=== PATIENT | male | born 1970 | race Caucasian/White ===

== ENCOUNTER 2018-05-03 10:14 | Inpatient (IN) | payer OTHER ==
[2018-05-03] MEDS ORDERED: Pantoprazole IV* 40 MG IV ONE (10:31)
[2018-05-03] MEDS ORDERED: Sucralfate TAB* 1 GM PO ONE (10:31)
[2018-05-03] MEDS ORDERED: Albuterol/Ipratropium NEB.SOL* Albuterol 2.5 MG/Ipratropium 0.5 MG 3 ML INH ONE (10:31)
[2018-05-03] MEDS ORDERED: Al Hydrox/Mg Hydrox/Simet LIQ* 30 ML UDC PO ONE (10:31)
[2018-05-03] MEDS ORDERED: Famotidine TAB* 20 MG PO ONE (10:31)
[2018-05-03 11:27] LABS: ABS Basophils 0 10^3/ul (0-0.2); ABS Eosinophils 0 10^3/ul (0-0.6); ABS Lymphocytes 0.9 10^3/ul (1.0-4.8); ABS Monocytes 1.3 10^3/ul (0-0.8); ABS Neutrophils 11.5 10^3/ul (1.5-7.7); ABS Nucleated RBC 0 10^3/ul; Eosinophil % 0.1 % (0-6); Hematocrit 44 % (42-52); Hemoglobin 14.6 g/dl (14.0-18.0); Lymphocyte % 6.7 % (25-47); Mean Corpuscular HGB Conc 33 g/dl (31-36); Mean Corpuscular Hemoglobin 31 pg (27-31); Mean Corpuscular Volume 91 fL (80-94); Mean Platelet Volume 7.6 um3 (7.4-10.4); Nucleated Red Blood Cells % 0.1; Platelet Count 174 10^3/ul (150-450); Red Blood Count 4.79 10^6/ul (4.00-5.40); Red Cell Distribution Width 14 % (10.5-15); White Blood Count 13.9 10^3/ul (3.5-10.8)
--- NOTE | 2018-05-03 11:53 | RAD ---
INDICATION: LEFT upper quadrant abdominal and lower LEFT chest pain. History of esophageal tumor. COMPARISON: No relevant prior exams available on the [facility] PACS for comparison. TECHNIQUE: Dual energy PA and routine lateral views of the chest were obtained. REPORT: Elevated lung volumes and both diffuse mild prominence of the interstitial markings and patchy rarefaction of the mid to upper lung zone interstitial markings. Alveolar consolidation at the lingula without volume loss to favor atelectasis. Negative for pleural effusion or pneumothorax. The heart, pulmonary vasculature, and mediastinal contours are unremarkable. Negative for free air beneath the diaphragm. Bilateral nonacute rib fractures with callus formation. No acute rib fracture or suspicious focal osseous lesion evident. IMPRESSION: 1. Alveolar consolidation at the lingula most consistent with pneumonia. Radiographic follow-up after therapy warranted to assess for resolution. 2. Stigmata of obstructive lung disease.
[2018-05-03] MEDS ORDERED: Levofloxacin 750 MG IVPREMIX(* 750 MG/150 ML BAG IVPB ONE (11:55)
[2018-05-03] MEDS ORDERED: NS 0.9% 1000 ML* 1,000 ML IV ONE (11:55)
[2018-05-03] MEDS ORDERED: methylPREDNISolone 125 MG* 2 ML VIAL IV ONE (11:56)
[2018-05-03] MEDS ORDERED: NS 0.9% 1000 ML*IV.FLUID IV ONE (12:04)
[2018-05-03] MEDS ORDERED: Acetaminophen TAB* 325 MG PO PRN (13:04)
[2018-05-03] MEDS ORDERED: Ondansetron INJ* 2 MG/ML VIAL IV PRN (13:04)
[2018-05-03] MEDS ORDERED: Al Hydrox/Mg Hydrox/Simet LIQ* 30 ML UDC PO PRN (13:04)
[2018-05-03] MEDS ORDERED: Thiamine IV* 100 MG/ML 2 ML VIAL IM ONE (13:04)
--- NOTE | 2018-05-03 13:16 | ED ---
Teodoro Kumari Stephanie, scribed for Gabriel Love MD on 05/03/18 at 1039 . Abdominal Pain/Male - HPI Summary HPI Summary: The pt is a 47 y/o M BIBA to the ED with c/o LUQ abd pain that began at 08:00. Symptoms include SOB, cough, and blood in stool. The pt is supposed to be on 2 L of O2 at home. The pt is taking mucinex. - History of Current Complaint Stated Complaint: CHEST PAIN Time Seen by Provider: 05/03/18 10:21 Hx Obtained From: Patient Onset/Duration: Sudden Onset, Lasting Hours, Still Present Timing: Constant Severity Currently: Mild Location: Discrete At: LUQ Radiates: No Aggravating Factor(s): Nothing Alleviating Factor(s): Nothing Associated Signs And Symptoms: Positive: Blood in Stool. Negative: Nausea, Vomiting - Allergies/Home Medications Allergies/Adverse Reactions: Allergies Allergy/AdvReac Type Severity Reaction Status Date / Time pollen extracts Allergy Eyes Verified 05/03/18 10:31 Itchy/Swollen/Red/Watery PMH/Surg Hx/FS Hx/Imm Hx Respiratory History: Reports: Hx Chronic Obstructive Pulmonary Disease (COPD) Sensory History: Denies: Hx Legally Blind EENT History: Denies: Hx Deafness Psychiatric History: Reports: Hx Anxiety - Family History Known Family History: Negative: Renal Disease - Social History Occupation: Employed Part-time, Disabled Lives: Alone Alcohol Use: Daily Hx Substance Use: No Substance Use Type: Reports: None Hx Tobacco Use: Yes Smoking Status (MU): Current Every Day Smoker Have You Smoked in the Last Year: Yes Review of Systems Negative: Fever Positive: Shortness Of Breath, Cough Positive: Abdominal Pain, Other - blood in stool. Negative: Vomiting, Nausea Negative: Slurred Speech All Other Systems Reviewed And Are Negative: Yes Physical Exam - Summary Physical Exam Summary: Appearance: Well appearing, no pain distress, smells heavily of alcohol Skin: warm, dry, reflects adequate perfusion Head/face: normal Eyes: EOMI, LESA ENT: normal Neck: supple, non-tender Respiratory: breath sounds present, wheezes in both basis, decreased aeration globally Cardiovascular: RRR, pulses symmetrical Abdomen: non-tender, soft, LUQ discomfort, L lower rib pain, no rebound or guarding Bowel Sounds: present Musculoskeletal: normal, strength/ROM intact Neuro: normal, sensory motor intact, A&Ox3 Triage Information Reviewed: Yes Vital Signs On Initial Exam: Initial Vitals Temp Pulse Resp BP Pulse Ox 100.2 F 119 28 141/97 94 05/03/18 10:23 05/03/18 10:23 05/03/18 10:23 05/03/18 10:23 05/03/18 10:23 Vital Signs Reviewed: Yes Diagnostics - Vital Signs Vital Signs Temp Pulse Resp BP Pulse Ox 05/03/18 11:52 123 23 96/68 92 05/03/18 11:21 115 18 97 05/03/18 11:17 113 18 99 05/03/18 10:23 100.2 F 119 28 141/97 94 - Laboratory Lab Results: Lab Results 05/03/18 05/03/18 05/03/18 Range/Units 10:40 10:40 12:14 WBC 13.9 H (3.5-10.8) 10^3/ul RBC 4.79 (4.00-5.40) 10^6/ul Hgb 14.6 (14.0-18.0) g/dl Hct 44 (42-52) % MCV 91 (80-94) fL MCH 31 (27-31) pg MCHC 33 (31-36) g/dl RDW 14 (10.5-15) % Plt Count 174 (150-450) 10^3/ul MPV 7.6 (7.4-10.4) um3 Neut % (Auto) 83.2 H (38-83) % Lymph % (Auto) 6.7 L (25-47) % [place] % (Auto) 9.7 H (0-7) % Eos % (Auto) 0.1 (0-6) % Baso % (Auto) 0.3 (0-2) % Absolute Neuts (auto) 11.5 H (1.5-7.7) 10^3/ul Absolute Lymphs (auto) 0.9 L (1.0-4.8) 10^3/ul Absolute Monos (auto) 1.3 H (0-0.8) 10^3/ul Absolute Eos (auto) 0 (0-0.6) 10^3/ul Absolute Basos (auto) 0 (0-0.2) 10^3/ul Absolute Nucleated RBC 0 10^3/ul Nucleated RBC % 0.1 Sodium 129 L (135-145) mmol/L Potassium 3.7 (3.5-5.0) mmol/L Chloride 91 L (101-111) mmol/L Carbon Dioxide 27 (22-32) mmol/L Anion Gap 11 (2-11) mmol/L BUN 4 L (6-24) mg/dL Creatinine 0.51 L (0.67-1.17) mg/dL Est GFR ( Amer) 225.0 (>60) Est GFR (Non-Af Amer) 175.0 (>60) BUN/Creatinine Ratio 7.8 L (8-20) Glucose 91 (70-100) mg/dL Lactic Acid 2.7 H* (0.5-2.0) mmol/L Calcium 8.5 L (8.6-10.3) mg/dL Total Bilirubin 0.40 (0.2-1.0) mg/dL AST 71 H (13-39) U/L ALT 43 (7-52) U/L Alkaline Phosphatase 131 H (34-104) U/L Troponin I 0.02 (<0.04) ng/mL Total Protein 7.4 (6.4-8.9) g/dL Albumin 3.9 (3.2-5.2) g/dL Globulin 3.5 (2-4) g/dL Albumin/Globulin Ratio 1.1 (1-3) Lipase 38 (11.0-82.0) U/L Serum Alcohol Pending Result Diagrams: 05/03/18 10:40 05/03/18 10:40 Lab Statement: Any lab studies that have been ordered have been reviewed, and results considered in the medical decision making process. - Radiology CXR Xray Interpretation: Positive (See Comments) Radiology Interpretation Completed By: Radiologist - 1. Alveolar consolidation at the lingula most consistent with pneumonia. Radiographic follow-up after therapy warranted to assess for resolution. 2. Stigmata of obstructive lung disease. ED physician has reviewed this report. Re-Evaluation - Re-Evaluation First Eval Change: Improved - Treat fever, IV fluids given. Improved with breathing treatments. Abdominal Pain Fem Course/Dx - Course Course Of Treatment: Patient with left basilar chest discomfort with underlying lingular pneumonia. IV antibiotics started. Long history of smoking and COPD. IV steroids, IV fluids given. He'll be admitted for further to the hospitalist service. - Diagnoses Provider Diagnoses: COPD (chronic obstructive pulmonary disease), Alcoholism, Lingular pneumonia, Severe sepsis - Provider Notifications Discussed Care Of Patient With: Heidi Nuñez Time Discussed With Above Provider: 11:58 Instructed by Provider To: Admit As Inpatient - Critical Care Time Critical Care Time: 30-74 min - Critical care time is exclusive of separately billable procedures. Discharge - Sign-Out/Discharge Documenting (check all that apply): Discharge/Admit/Transfer - Admit - Discharge Plan Condition: Fair Disposition: ADMITTED TO [facility] Referrals: No Primary Care Phys,NOPCP [Primary Care Provider] - - Billing Disposition and Condition Condition: FAIR Disposition: Admitted to [facility] The documentation as recorded by the Teodoro fine Stephanie accurately reflects the service I personally performed and the decisions made by , Gabriel Love MD.
[2018-05-03] MEDS ORDERED: Albuterol HFA INHALER* 8 gm MDI INH PRN (13:22)
[2018-05-03] MEDS ORDERED: cefTRIAXone(*) 1 GM ADVAN/BAG ONE (14:11)
[2018-05-03] MEDS: cefTRIAXone(*) 1 GM in NS 0.9% 50 ML* 50 ML IVPB SCH (14:16)
[2018-05-03] MEDS ORDERED: Azithromycin IV(*) 500 MG in D5W 250 ML BAG* 250 ML IVPB SCH (15:00)
[2018-05-03] MEDS ORDERED: Iohexol 350* (CONTRAST) 500 ML MDV IV ONE (15:15)
[2018-05-03] MEDS: ALPRAZolam TAB* 0.5 MG PO SCH ×2 (16:17→21:19)
[2018-05-03] MEDS: Enoxaparin(*) 40 MG/0.4 ML SYR SUBCUT SCH (16:19)
[2018-05-03] MEDS: oxyCODONE TAB* 5 MG TAB PO PRN (16:23)
--- NOTE | 2018-05-03 16:28 | RAD ---
INDICATION: Chest pain and shortness of breath. COMPARISON: Comparison is made with prior chest x-ray study from May 03, 2018. TECHNIQUE: A CT angiogram of the chest was performed with intravenous following intravenous injection of 61 ml of Omnipaque 350 nonionic contrast. Contiguous axial sections were obtained from the lung apices through the lung bases. Images were reconstructed in the coronal and sagittal planes. FINDINGS: There is relatively homogeneous opacification of the pulmonary arteries. No intraluminal filling defect or pulmonary embolism is seen. The heart is within normal limits in size. No pericardial effusion is present. The thoracic aorta is normal in caliber and demonstrates homogeneous contrast opacification. There are are mildly prominent mediastinal lymph nodes which are most prominent in the aorticopulmonary window measuring up to 1.1 cm in transverse dimension. There is a slightly prominent left hilar lymph node measuring 1.0 cm in transverse dimension. There is a reticular nodular infiltrate involving the left upper and lower lobes which is more confluent in the region of the lingula most consistent with pneumonia. No pleural effusion is seen. There are multiple old right lateral and posterior lateral rib fractures. No other focal osseous abnormalities are seen. IMPRESSION: 1. NO EVIDENCE FOR PULMONARY EMBOLISM. 2. LEFT UPPER AND LOWER LOBE INFILTRATES MOST CONSISTENT WITH PNEUMONIA. RECOMMEND FOLLOW-UP CHEST X-RAYS TO RESOLUTION. 3. MILDLY PROMINENT MEDIASTINAL AND LEFT HILAR LYMPH NODES.
[2018-05-03] MEDS: NS 0.9% 1000 ML* 1,000 ML IV SCH (16:29)
[2018-05-03] MEDS: Albuterol 2.5 MG/3 ML NEB.SOL* (0.083%) INH SCH ×2 (16:49→18:22)
[2018-05-03] MEDS ORDERED: ALPRAZolam TAB* 0.5 MG PO SCH (17:00)
[2018-05-03] MEDS: Mometasone 220 MCG MDI INH SCH (19:52)
[2018-05-03] MEDS ORDERED: Morphine TAB Extended Release (*) 15 MG TAB.ER PO SCH ×2 (21:00)
[2018-05-03] MEDS ORDERED: ALPRAZolam TAB* 0.25 MG PO SCH (21:00)
[2018-05-03] MEDS: ALPRAZolam TAB* 0.25 MG PO SCH (21:18)
[2018-05-03] MEDS: Morphine TAB Extended Release (*) 15 MG TAB.ER PO SCH ×2 (21:20→21:21)
[2018-05-03] MEDS: guaiFENesin ER TAB 600 MG PO SCH (21:22)
[2018-05-03] MEDS: PARoxetine HCL TAB* 10 MG PO SCH (21:22)
[2018-05-03] MEDS: Famotidine TAB* 20 MG PO SCH (21:23)
--- NOTE | 2018-05-03 21:24 | HP ---
CC: Dr. Matos * HISTORY AND PHYSICAL: DATE OF ADMISSION: 05/03/18 PROVIDER: Tessa Marie NP PRIMARY CARE PROVIDER: Dr. Matos. ATTENDING PHYSICIAN WHILE IN THE HOSPITAL: Dr. Heidi Nuñez * (dictated by Tessa Marie NP). CHIEF COMPLAINT: 1. Left-sided chest pain. 2. Cough. HISTORY OF PRESENT ILLNESS: Mr. Brown is a 47-year-old gentleman, who carries a past medical history significant for COPD, GERD, chronic cough, allergies, anxiety, and chronic back and neck pain, who presented to the emergency room today after at approximately 8 a.m. this morning, developed some left-sided chest pain in his left lower ribs. The patient reports that he was feeling in his usual state of health, woke up this morning at 5 a.m., was feeling okay and then approximately 8 a.m. developed some left lower rib/chest pain. He does report that he has had a cough x2 weeks and over the past 2 days has been waking up during the night sweating. He does report that he had increased sputum production with yellow sputum. He also reports that he coughs every morning for approximately 1-1/2 hours every morning and produces clear secretions. He also reports that he has chronic diarrhea and he goes approximately 8 times daily and that this is being followed by his GI doctor in [place]. He also reports that he has an esophageal tumor that they have been monitoring. He has had that for the past 3 years. He also reports a cyst in his stomach that is as well being monitored for the past 3 years. He does report chronic alcohol use drinking approximately 6 beers a day. He does report fevers, he does report loss of appetite x2 days. He complains of left lower rib pain. He denies any edema. He does report a chronic cough. He denies any hemoptysis. He does report that he has has some increased shortness of breath today. He does report some chronic nausea and coughing up sputum. He does report chronic diarrhea and chronic abdominal pain. He denies any hematuria or dysuria. Denies any focal weakness or sensory loss. Denies any visual complaints. Denies any dysphagia. He does report that he just has to eat small frequent meals as he fills fast. He denies any arthralgia or myalgia. Denies any rashes or lesions. Denies any current issue with anxiety or depression. PAST MEDICAL HISTORY: Significant for: 1. COPD. 2. GERD. 3. Chronic neck and back pain. 4. Anxiety. 5. Chronic allergies. 6. Chronic cough. 7. Left hip fracture. PAST SURGICAL HISTORY: 1. Left hip repair. 2. Left laser surgery on his eye. 3. Neck surgery. MEDICATIONS: Current home medications: 1. Ambien 10 mg p.o. at bedtime as needed for sleep. 2. Tramadol 50 mg p.o. t.i.d. 3. Oxycodone 10 mg p.o. q.6 hours, maximum daily dose of 4. 4. Xanax 0.5 mg p.o. b.i.d. 5. Xanax 0.25 mg at bedtime. 6. Guaifenesin 600 mg p.o. b.i.d. 7. Morphine sulfate 15 mg p.o. b.i.d. and then 15 mg at bedtime. 8. Paxil 10 mg p.o. b.i.d. 9. Cimetidine 40 mg p.o. b.i.d. 10. Zofran 4 mg p.o. q.6 hours as needed for nausea. 11. Albuterol HFA inhaler 2 puffs q.4 hours as needed. 12. Pseudoephedrine 30 mg p.o. q.8 hours. 13. 10 mg p.o. daily. 14. Flovent 1 puff inhaled b.i.d. ALLERGIES TO MEDICATIONS: Denies any drug allergies. FAMILY HISTORY: Mother recently from esophageal cancer. Denied any cardiac history. SOCIAL HISTORY: He does report he smokes 1 pack per day of cigarettes. He does report chronic daily alcohol use of approximately a 6-pack beer daily. Denies any illicit drug use. He is currently . His surrogate decision maker in the event he is unable to make his own decisions is Zeeshan Urbano, his friend. He is a full code. REVIEW OF SYSTEMS: There was a documented fever. He does complain of decreased appetite x2 days. He does complain of left-sided chest pain and lower rib pain. This started this morning. He denies any edema. He does report a chronic cough. Denies any hemoptysis. He does report some shortness of breath that started today, worse with his cough. GI: He does report chronic nausea and coughing up sputum in the morning. He does report chronic diarrhea. He does report generalized abdominal pain that is chronic. : Denies any hematuria or dysuria. Neurologic: Denies any weakness or sensory loss. Eyes: Denies any visual complaints. ENT: Denies dysphagia. Musculoskeletal: No arthralgias or myalgias. Skin: No rashes or lesions. Psych: No worsening anxiety or depression. PHYSICAL EXAMINATION GENERAL: At this time, Mr. Brown is a 47-year-old male. He appears fatigued, resting on the stretcher in the ER. He does not appear to be in any acute distress. VITAL SIGNS: Temperature was 100.2, heart rate 119, respirations are 18, O2 saturation 97% on room air, blood pressure is 141/97. HEENT: Head is atraumatic, normocephalic. Eyes: EOMs are intact. Sclerae anicteric and not pale. Oral mucosa appears to be moist. No oropharyngeal erythema. NECK: Supple. LUNGS: Diminished throughout bilaterally. There are no rales or rhonchi. CARDIAC: S1, S2. He is tachycardic on the monitor, has a regular rate. There are no murmurs, rubs, or gallops. ABDOMEN: Soft, flat, bowel sounds are present x4. EXTREMITIES: Pulses are +2 bilaterally. He is able to move all 4 extremities with 5/5 strength. NEUROLOGIC: He is awake and alert and oriented x4. There are no focal neuro deficits. SKIN: Intact. DIAGNOSTIC STUDIES/LAB DATA: WBCs are 13.9, RBCs 4.79, hemoglobin 14.6, hematocrit was 44, platelet count was 174, neutrophils were 83.2, lymphs were 6.7. Sodium was 129, potassium 3.7, chloride was 91, carbon dioxide was 27, anion gap was 11, BUN was 4, creatinine was 0.51, glucose was 91, lactic acid was 2.7, calcium was 8.5. ASTs were 71, ALTs were 43, alkaline phos was 131. Troponin 0.02. Lipase is 38. Serum alcohol is currently pending. EKG shows sinus tachycardia at a rate of 109. There are no ST changes. Chest x-ray: Radiologist's impression: 1. Alveolar consolidation in the lingula, most consistent with pneumonia. 2. Stigmata of obstructive lung disease. ASSESSMENT AND PLAN: Mr. Brown is a 47-year-old male, who presented to the emergency room today with chest pain that started at approximately 8 a.m., worse with cough and deep breath and palpation to the left lower ribs. Due to his chest pain and chest x-ray showing pneumonia, we were asked to see and evaluate him for admission. He will be admitted inpatient for: 1. Pneumonia. He will be placed on ceftriaxone and azithromycin. I will continue nebulizer treatments with his continued inhalers. I will place him on prednisone 40 mg p.o. daily. We will get urine for legionella and Streptococcus pneumoniae. He will also have a sputum culture ordered. Blood cultures have been ordered and sent. 2. Sepsis. He meets sepsis criteria based on systemic inflammatory response syndrome with elevated white count of 13.9, respiratory rate greater than 20, and tachycardia with a heart rate of 119. He does also have a temperature of 100.2 and a lactic acid of 2.7. He will receive fluid resuscitation with 30 mL/ kg. He will be placed on IV antibiotics, ceftriaxone and azithromycin, to treat his pneumonia. We will repeat a lactic acid and a BMP after his fluid resuscitation. 3. Hyponatremia. I suspect this is due to dehydration. We will resuscitate him with normal saline, IV fluids, and repeat a BMP at 1700. 4. Chest pain. The patient complains of left-sided chest pain that started at approximately 8 a.m. this morning. It is reproducible with palpation to his left lower ribs. It is worse with deep breath and coughing. I will add on a D- dimer. If the D-dimer is positive, we will continue with the CTA of the chest to rule out pulmonary embolism. At this time, his troponin is negative at 0.02. I will continue to trend his troponins. In the event they become positive, he should have further cardiac evaluation. 5. Chronic obstructive pulmonary disease. I will continue him on Flovent inhalers and albuterol nebulizers q.[address] him on prednisone 40 mg p.o. daily. 6. Alcohol abuse. We will place him on [facility] protocol and monitor for any withdrawal symptoms. The patient states that he drinks approximately 6 beers daily. He does report that daily in the a.m., he is shaky and has to drink 3 beers prior to going to work. 7. FEN. He can have a regular diet. 8. Code status. He is a full code. 9. DVT prophylaxis. I will place him on Lovenox 40 mg daily. 10. Disposition. He will be placed inpatient on the medical floor. TIME SPENT: Time spent on this admission was 60 minutes, greater than half that time was spent [id number] with the patient obtaining my history and physical and the other half the time was spent going over my plan of care with the patient and implementing my plan of care. I have discussed with my attending, Dr. Heidi Nuñez; she is in agreement with my plan. TESSA MARIE, [employer] SALES LEADER [id number]/[facility] #: [id number] ROSEANN
[2018-05-04] MEDS ORDERED: NS 0.9% 1000 ML* 1,000 ML IV ONE (00:21)
[2018-05-04] MEDS: Albuterol 2.5 MG/3 ML NEB.SOL* (0.083%) INH SCH ×7 (01:12→23:02)
[2018-05-04] MEDS: oxyCODONE TAB* 5 MG TAB PO PRN ×3 (01:15→14:08)
[2018-05-04 06:40] LABS: ABS Basophils 0 10^3/ul (0-0.2); ABS Eosinophils 0 10^3/ul (0-0.6); ABS Lymphocytes 0.3 10^3/ul (1.0-4.8); ABS Monocytes 0.7 10^3/ul (0-0.8); ABS Nucleated RBC 0 10^3/ul; Eosinophil % 0 % (0-6); Hematocrit 42 % (42-52); Hemoglobin 14.4 g/dl (14.0-18.0); Lymphocyte % 2.8 % (25-47); Mean Corpuscular HGB Conc 35 g/dl (31-36); Mean Corpuscular Hemoglobin 32 pg (27-31); Mean Corpuscular Volume 92 fL (80-94); Mean Platelet Volume 7.7 um3 (7.4-10.4); Nucleated Red Blood Cells % 0; Platelet Count 160 10^3/ul (150-450); Red Blood Count 4.51 10^6/ul (4.00-5.40); Red Cell Distribution Width 14 % (10.5-15)
[2018-05-04 07:00] LABS: EGFR Non-African American 163.8 (>60)
[2018-05-04] MEDS: predniSONE TAB* 20 MG PO SCH (08:56)
[2018-05-04] MEDS: Famotidine TAB* 20 MG PO SCH ×2 (08:56→20:31)
[2018-05-04] MEDS: Cetirizine* 10 MG TAB PO SCH (08:57)
[2018-05-04] MEDS: PARoxetine HCL TAB* 10 MG PO SCH ×2 (08:57→20:30)
[2018-05-04] MEDS: ALPRAZolam TAB* 0.5 MG PO SCH ×2 (08:57→20:30)
[2018-05-04] MEDS: Multivitamins/Minerals TAB PO SCH (08:57)
[2018-05-04] MEDS: guaiFENesin ER TAB 600 MG PO SCH ×2 (08:58→20:31)
[2018-05-04] MEDS: Morphine TAB Extended Release (*) 15 MG TAB.ER PO SCH ×3 (08:58→20:31)
[2018-05-04] MEDS ORDERED: Azithromycin IV(*) 500 MG in NS 0.9% 250 ML* 250 ML IVPB SCH (08:58)
[2018-05-04] MEDS: Folic Acid TAB* 1 MG PO SCH (08:59)
[2018-05-04] MEDS: Thiamine TAB* 100 MG TAB PO SCH (09:00)
[2018-05-04] MEDS: LORazepam INJ* 2 MG/ML 1 ML VIAL IV PUSH SCH (10:16)
[2018-05-04] MEDS ORDERED: Mouth Piece, Nicotine* 1 EACH CARTRIDGE INH PRN (10:27)
--- NOTE | 2018-05-04 11:03 | PN ---
Sepsis Event Evaluation Date of Evaluation: 05/04/18 Time of Evaluation: 10:58 Current Stage of Sepsis: Sepsis Vital Signs - Last 12 Hours: Vital Signs - 12 hr Temp Pulse Resp BP Pulse Ox 05/04/18 10:16 18 05/04/18 09:33 97.4 F 82 20 146/90 94 05/04/18 08:58 18 05/04/18 08:57 18 05/04/18 08:00 18 05/04/18 07:48 70 17 96 05/04/18 07:41 18 05/04/18 07:27 97.5 F 83 18 147/81 98 05/04/18 05:41 68 18 150/85 96 05/04/18 03:32 97.7 F 82 16 144/92 97 05/04/18 03:15 16 05/04/18 01:51 18 05/04/18 01:50 18 05/04/18 01:49 18 05/04/18 01:36 87 18 139/85 97 05/04/18 01:15 20 05/03/18 23:55 18 05/03/18 23:32 98.6 F 88 16 137/82 96 Lactic Acid: 05/03/18 16:24 Lactic Acid 2.4 H* - Cardiopulmonary Exam Capillary Refill: Immediate Respiratory: Symmetrical Chest Expansion and Respiratory Effort, - - course breath sounds, bilateral wheeze Cardiovascular: NL Sounds; No Murmurs; No JVD, No Edema - Peripheral Pulse Exam Radial Pulses: Bilateral Normal - Skin Exam Skin Exam: Normal Turgor - [place] Coma Scale Best Eye Response: 4 - Spontaneous Best Motor Response: 6 - Obeys Commands Best Verbal Response: 5 - Oriented Coma Scale Total: 15 Assess/Plan/Problems-Billing Assessment: This is a 47 year old male patient with hx of ETOH abuse, chronic pain and chronic cough that presented to ER with complaint of left sided chest pain, fever and cough. Assessment reveals left sided CAP with ETOH withdrawal and sepsis. - Patient Problems (1) CAP (community acquired pneumonia) Code(s): J18.9 - PNEUMONIA, UNSPECIFIED ORGANISM SNOMED Code(s): 107367963 Comment: - Negative legionella and negative s. pneumo - Follow cultures - WBCs trending down, afebrile - Continue levaquin and ceftriaxone (2) Sepsis Comment: - Resolved - s/p fluid bolus 30ml/kg - BP stable, tachycardia resolved - Repeat LA, currently 2.4 down from 2.7 (3) ETOH abuse Code(s): F10.10 - ALCOHOL ABUSE, UNCOMPLICATED SNOMED Code(s): 67879549 Comment: - ETOH/BAL 320 at admission - Continue WAM, scoring 9 today - Continue thiamine, folic acid, MVI and PPI (4) HTN (hypertension) Code(s): I10 - ESSENTIAL (PRIMARY) HYPERTENSION SNOMED Code(s): 66239131 Comment: - Sepsis hypotension resolved - BP now elevated likely due to ETOH withdrawal/high WAM scores - Clonidine PRN (5) Chronic pain Code(s): G89.29 - OTHER CHRONIC PAIN SNOMED Code(s): 67157129 Comment: - continue home pain regimen (6) Tobacco abuse Code(s): Z72.0 - TOBACCO USE SNOMED Code(s): 822333987 Comment: - Nicotine patch and inhaler, patient disinterested in cessation (7) DVT prophylaxis Code(s): KMC7220 - SNOMED Code(s): 638093970 Comment: - lovenox (8) Full code status Code(s): Z78.9 - OTHER SPECIFIED HEALTH STATUS SNOMED Code(s): 349711440
[2018-05-04] MEDS: Nicotine PATCH 21 MG/24 HR* PATCH TRANSDERM SCH (11:16)
[2018-05-04] MEDS ORDERED: cloNIDine TAB* 0.1 MG PO PRN (11:17)
[2018-05-04] MEDS ORDERED: Pneumococcal *Vac Polyvalent 0.5 ML VIAL IM ONE (12:00)
[2018-05-04] MEDS: cefTRIAXone(*) 1 GM in NS 0.9% 50 ML* 50 ML IVPB SCH (14:07)
[2018-05-04] MEDS: Enoxaparin(*) 40 MG/0.4 ML SYR SUBCUT SCH (14:08)
[2018-05-04] MEDS: Nicotine Inhaler* 10 MG AMP INH PRN ×2 (15:08→20:37)
[2018-05-04] MEDS: Azithromycin IV(*) 500 MG in NS 0.9% 250 ML* 250 ML IVPB SCH (15:34)
[2018-05-04] MEDS: Mometasone 220 MCG MDI INH SCH (20:15)
[2018-05-04] MEDS: ALPRAZolam TAB* 0.25 MG PO SCH (20:29)
[2018-05-04] MEDS: Nicotine Patch Removal NOTE PATCH OFF SCH (20:37)
[2018-05-05] MEDS: Nicotine Inhaler* 10 MG AMP INH PRN ×3 (00:11→22:00)
[2018-05-05] MEDS: LORazepam INJ* 2 MG/ML 1 ML VIAL IV PUSH SCH (00:12)
[2018-05-05] MEDS: NS 0.9% 1000 ML* 1,000 ML IV SCH ×2 (03:49→18:17)
[2018-05-05] MEDS: Albuterol 2.5 MG/3 ML NEB.SOL* (0.083%) INH SCH ×5 (04:45→19:18)
[2018-05-05] MEDS: Nicotine PATCH 21 MG/24 HR* PATCH TRANSDERM SCH (08:55)
[2018-05-05] MEDS: Morphine TAB Extended Release (*) 15 MG TAB.ER PO SCH ×3 (08:56→21:56)
[2018-05-05] MEDS: Famotidine TAB* 20 MG PO SCH ×2 (08:57→21:56)
[2018-05-05] MEDS: Multivitamins/Minerals TAB PO SCH (08:57)
[2018-05-05] MEDS: predniSONE TAB* 20 MG PO SCH (08:58)
[2018-05-05] MEDS: guaiFENesin ER TAB 600 MG PO SCH ×2 (08:59→21:55)
[2018-05-05] MEDS: Cetirizine* 10 MG TAB PO SCH (08:59)
[2018-05-05] MEDS: Folic Acid TAB* 1 MG PO SCH (08:59)
[2018-05-05] MEDS: PARoxetine HCL TAB* 10 MG PO SCH ×2 (08:59→21:56)
[2018-05-05] MEDS: ALPRAZolam TAB* 0.5 MG PO SCH ×2 (08:59→21:55)
[2018-05-05] MEDS: Thiamine TAB* 100 MG TAB PO SCH (09:00)
--- NOTE | 2018-05-05 11:16 | PN ---
Subjective Date of Service: 05/05/18 Interval History: Patient seen and examined. Appears more comfortable today. WAM scores 2-3, still tremulous but breathing is more comfortable per patient's report. Remains on O2, denies chest pain, no palpitations, no fever or headache. Objective Active Medications: Acetaminophen (Tylenol Tab*) 650 mg PO Q4H PRN PRN Reason: FEVER/PAIN Al Hydrox/Mg Hydrox/Simethicone (Maalox Plus*) 30 ml PO Q6H PRN PRN Reason: INDIGESTION Albuterol (Ventolin 2.5 Mg/3 Ml Neb.Ignacia*) 2.5 mg INH [id number] AWAKE [facility] Last Admin: 05/05/18 10:38 Dose: 2.5 mg Albuterol (Ventolin Hfa Inhaler*) 2 puff INH Q4H PRN PRN Reason: SOB/WHEEZING Last Admin: 05/03/18 19:51 Dose: 2 puff Alprazolam (Xanax Tab*) 0.25 mg PO BEDTIME [facility] Last Admin: 05/04/18 20:29 Dose: 0.25 mg Alprazolam (Xanax Tab*) 0.5 mg PO BID [facility] Last Admin: 05/05/18 08:59 Dose: 0.5 mg Cetirizine HCl (Zyrtec*) 10 mg PO DAILY [facility] Last Admin: 05/05/18 08:59 Dose: 10 mg Clonidine HCl (Catapres Tab*) 0.1 mg PO TID PRN PRN Reason: hypertension Device (Nicotine Mouth Piece*) 1 each INH .USE WITH NICOTROL PRN PRN Reason: CRAVING Last Admin: 05/04/18 10:50 Dose: 1 each Enoxaparin Sodium (Lovenox(*)) 40 mg SUBCUT Q24H [facility] Last Admin: 05/04/18 14:08 Dose: 40 mg Famotidine (Pepcid Tab*) 40 mg PO BID [facility] Last Admin: 05/05/18 08:57 Dose: 40 mg Folic Acid (Folvite Tab*) 1 mg PO DAILY [facility] Last Admin: 05/05/18 08:59 Dose: 1 mg Guaifenesin (Mucinex*) 600 mg PO BID [facility] Last Admin: 05/05/18 08:59 Dose: 600 mg Sodium Chloride (Ns 0.9% 1000 Ml*) 1,000 mls @ 75 mls/hr IV PER RATE [facility] Last Admin: 05/05/18 03:49 Dose: 75 mls/hr Ceftriaxone Sodium 1 gm/ (Sodium Chloride) 50 mls @ 200 mls/hr IVPB Q24H [facility] Last Admin: 05/04/18 14:07 Dose: 200 mls/hr Azithromycin 500 mg/ Sodium (Chloride) 250 mls @ 250 mls/hr IVPB 1500 [facility] Last Admin: 05/04/18 15:34 Dose: 250 mls/hr Lorazepam (Ativan Inj*) 0 - 3 mg IV PUSH .PER [facility] PROTOCOL [facility] PRN Reason: Protocol Last Admin: 05/05/18 00:12 Dose: 1.5 mg Mometasone Furoate (Asmanex 220 Mcg Mdi *) 2 puff INH BEDTIME [facility] Last Admin: 05/04/18 20:15 Dose: 2 puff Morphine Sulfate (Ms Contin(*)) 15 mg PO BEDTIME [facility] Last Admin: 05/04/18 20:29 Dose: 15 mg Morphine Sulfate (Ms Contin(*)) 15 mg PO BID [facility] Last Admin: 05/05/18 08:56 Dose: 15 mg Multivitamins/Minerals (Theragran/Minerals Tab*) 1 tab PO DAILY [facility] Last Admin: 05/05/18 08:57 Dose: 1 tab Nicotine (Nicotine Inhaler*) 10 mg INH Q2H PRN PRN Reason: CRAVING Last Admin: 05/05/18 08:57 Dose: 10 mg Nicotine (Nicotine Patch 21 Mg/24 Hr*) 1 patch TRANSDERM DAILY@0800 [facility] Last Admin: 05/05/18 08:55 Dose: 1 patch Ondansetron HCl (Zofran Inj*) 4 mg IV Q4H PRN PRN Reason: NAUSEA/VOMITING Oxycodone HCl (Roxycodone Tab*) 10 mg PO Q6H PRN PRN Reason: PAIN Last Admin: 05/04/18 14:08 Dose: 10 mg Paroxetine HCl (Paxil Tab*) 10 mg PO BID [facility] Last Admin: 05/05/18 08:59 Dose: 10 mg Pharmacy Profile Note (Nicotine Patch Removal Note*) 1 note PATCH OFF 2100 [facility] Last Admin: 05/04/18 20:37 Dose: 1 note Prednisone (Deltasone Tab*) 40 mg PO DAILY [facility] Stop: 05/08/18 09:01 Last Admin: 05/05/18 08:58 Dose: 40 mg Thiamine HCl (Vitamin B-1 Tab*) 100 mg PO DAILY [facility] Last Admin: 05/05/18 09:00 Dose: 100 mg Vital Signs - 8 hr 05/05/18 05/05/18 05/05/18 03:51 04:05 06:06 Temperature 98.0 F Pulse Rate 86 92 Respiratory 16 18 18 Rate Blood Pressure 139/92 147/84 (mmHg) O2 Sat by Pulse 93 94 Oximetry 05/05/18 05/05/18 05/05/18 07:00 07:09 07:35 Temperature 97.7 F Pulse Rate 71 78 Respiratory 16 12 16 Rate Blood Pressure 130/81 (mmHg) O2 Sat by Pulse 98 97 Oximetry 05/05/18 05/05/18 05/05/18 08:56 08:59 10:39 Temperature Pulse Rate 90 Respiratory 18 18 14 Rate Blood Pressure (mmHg) O2 Sat by Pulse 98 Oximetry 05/05/18 10:43 Temperature 98.2 F Pulse Rate Respiratory Rate Blood Pressure (mmHg) O2 Sat by Pulse Oximetry Oxygen Devices in Use Now: Nasal Cannula Appearance: Alert, tremulous, NAD Eyes: No Scleral Icterus, PERRLA Ears/Nose/Mouth/Throat: Mucous Membranes Moist Neck: NL Appearance and Movements; NL JVP, Trachea Midline Respiratory: Symmetrical Chest Expansion and Respiratory Effort, - - Bilateral exp wheeze, diminished throughout, no crackles or rhonchi Cardiovascular: NL Sounds; No Murmurs; No JVD, RRR, No Edema Abdominal: NL Sounds; No Tenderness; No Distention Extremities: No Edema, No Clubbing, Cyanosis Skin: No Rash or Ulcers Neurological: Alert and Oriented x 3, NL Gait Nutrition: Taking PO's Result Diagrams: 05/04/18 06:13 05/04/18 06:13 Additional Lab and Data: Microbiology and Other Data: Microbiology 05/04/18 07:45 Gram Stain - Final Sputum Expectorated 05/03/18 16:50 Legionella Urinary Antigen - Final Urine Negative Legionella Antigen Diagnostic Imaging: Patient Name: BRIEN AMBROSIO Medical Record#: [id number] Ordering Physician: Tessa Marie NP Acct.#: [id number] : 1970 Age: 47 Sex: M Location: [address] [place] [address] MEDICAL Exam Date: 05/03/18 142 ADM Status: ADM IN Order Information: CTA CHEST Accession Number: [id number] CPT: 07011 INDICATION: Chest pain and shortness of breath. COMPARISON: Comparison is made with prior chest x-ray study from May 03, 2018. TECHNIQUE: A CT angiogram of the chest was performed with intravenous following intravenous injection of 61 ml of Omnipaque 350 nonionic contrast. Contiguous axial sections were obtained from the lung apices through the lung bases. Images were reconstructed in the coronal and sagittal planes. FINDINGS: There is relatively homogeneous opacification of the pulmonary arteries. No intraluminal filling defect or pulmonary embolism is seen. The heart is within normal limits in size. No pericardial effusion is present. The thoracic aorta is normal in caliber and demonstrates homogeneous contrast opacification. There are are mildly prominent mediastinal lymph nodes which are most prominent in the aorticopulmonary window measuring up to 1.1 cm in transverse dimension. There is a slightly prominent left hilar lymph node measuring 1.0 cm in transverse dimension. There is a reticular nodular infiltrate involving the left upper and lower lobes which is more confluent in the region of the lingula most consistent with pneumonia. No pleural effusion is seen. There are multiple old right lateral and posterior lateral rib fractures. No other focal osseous abnormalities are seen. IMPRESSION: 1. NO EVIDENCE FOR PULMONARY EMBOLISM. 2. LEFT UPPER AND LOWER LOBE INFILTRATES MOST CONSISTENT WITH PNEUMONIA. RECOMMEND FOLLOW-UP CHEST X-RAYS TO RESOLUTION. 3. MILDLY PROMINENT MEDIASTINAL AND LEFT HILAR LYMPH NODES. <Electronically signed by Jason Christian MD in [place]> 05/03/181623 Dictated By: Jason Christian MD Dictated Date/Time: 05/03/184 Transcribed Date/Time: 05/03/18 6802 Copy to: Assess/Plan/Problems-Billing Assessment: This is a 47 year old male patient with hx of ETOH abuse, chronic pain and chronic cough that presented to ER with complaint of left sided chest pain, fever and cough. Assessment reveals left sided CAP with ETOH withdrawal and sepsis. - Patient Problems (1) CAP (community acquired pneumonia) Code(s): J18.9 - PNEUMONIA, UNSPECIFIED ORGANISM SNOMED Code(s): 441377136 Comment: - Negative legionella and negative s. pneumo - Follow cultures - WBCs trending down, afebrile - Continue azithromycin and ceftriaxone, nebs and O2 - Improving (2) Sepsis Comment: - Resolved post fluid resuscitation - Follow LA today (3) ETOH abuse Code(s): F10.10 - ALCOHOL ABUSE, UNCOMPLICATED SNOMED Code(s): 86112864 Comment: - ETOH/BAL 320 at admission - WAM scores improving - Continue thiamine, folic acid, MVI and PPI (4) HTN (hypertension) Code(s): I10 - ESSENTIAL (PRIMARY) HYPERTENSION SNOMED Code(s): 82339305 Comment: - Sepsis hypotension resolved - Clonidine PRN (5) Chronic pain Code(s): G89.29 - OTHER CHRONIC PAIN SNOMED Code(s): 62495401 Comment: - continue home pain regimen (6) Tobacco abuse Code(s): Z72.0 - TOBACCO USE SNOMED Code(s): 409253364 Comment: - Nicotine patch and inhaler, patient disinterested in cessation (7) DVT prophylaxis Code(s): SMA4692 - SNOMED Code(s): 914023977 Comment: - lovenox (8) Full code status Code(s): Z78.9 - OTHER SPECIFIED HEALTH STATUS SNOMED Code(s): 846935401 Status and Disposition: Remain inpatient. Re-eval over next 24 hours to check O2 requirement and continued improvement of symptoms.
[2018-05-05 12:26] LABS: ABS Basophils 0 10^3/ul (0-0.2); ABS Eosinophils 0 10^3/ul (0-0.6); ABS Lymphocytes 0.7 10^3/ul (1.0-4.8); ABS Monocytes 0.6 10^3/ul (0-0.8); ABS Neutrophils 9.6 10^3/ul (1.5-7.7); ABS Nucleated RBC 0 10^3/ul; Eosinophil % 0.1 % (0-6); Hematocrit 39 % (42-52); Hemoglobin 13.3 g/dl (14.0-18.0); Lymphocyte % 6.4 % (25-47); Mean Corpuscular HGB Conc 34 g/dl (31-36); Mean Corpuscular Hemoglobin 31 pg (27-31); Mean Corpuscular Volume 92 fL (80-94); Mean Platelet Volume 7.4 um3 (7.4-10.4); Nucleated Red Blood Cells % 0; Platelet Count 170 10^3/ul (150-450); Red Blood Count 4.23 10^6/ul (4.00-5.40); Red Cell Distribution Width 14 % (10.5-15)
[2018-05-05 12:41] LABS: EGFR Non-African American 157.1 (>60)
[2018-05-05] MEDS: cefTRIAXone(*) 1 GM in NS 0.9% 50 ML* 50 ML IVPB SCH (13:40)
[2018-05-05] MEDS: Enoxaparin(*) 40 MG/0.4 ML SYR SUBCUT SCH (13:43)
[2018-05-05] MEDS: Azithromycin IV(*) 500 MG in NS 0.9% 250 ML* 250 ML IVPB SCH (15:28)
[2018-05-05] MEDS: oxyCODONE TAB* 5 MG TAB PO PRN (15:33)
[2018-05-05] MEDS: Mometasone 220 MCG MDI INH SCH (19:18)
[2018-05-05] MEDS: ALPRAZolam TAB* 0.25 MG PO SCH (21:56)
[2018-05-05] MEDS: Nicotine Patch Removal NOTE PATCH OFF SCH (22:01)
[2018-05-06] MEDS: Albuterol 2.5 MG/3 ML NEB.SOL* (0.083%) INH SCH ×4 (00:48→12:12)
[2018-05-06 08:24] VITALS: BP 149/96
[2018-05-06] MEDS: Nicotine PATCH 21 MG/24 HR* PATCH TRANSDERM SCH (08:46)
[2018-05-06] MEDS: Multivitamins/Minerals TAB PO SCH (08:48)
[2018-05-06] MEDS: Thiamine TAB* 100 MG TAB PO SCH (08:48)
[2018-05-06] MEDS: Nicotine Inhaler* 10 MG AMP INH PRN (08:49)
[2018-05-06] MEDS: oxyCODONE TAB* 5 MG TAB PO PRN (08:49)
[2018-05-06] MEDS: Famotidine TAB* 20 MG PO SCH (08:50)
[2018-05-06] MEDS: PARoxetine HCL TAB* 10 MG PO SCH (08:50)
[2018-05-06] MEDS: ALPRAZolam TAB* 0.5 MG PO SCH (08:50)
[2018-05-06] MEDS: Folic Acid TAB* 1 MG PO SCH (08:50)
[2018-05-06] MEDS: predniSONE TAB* 20 MG PO SCH (08:50)
[2018-05-06] MEDS: Morphine TAB Extended Release (*) 15 MG TAB.ER PO SCH (08:51)
[2018-05-06] MEDS: guaiFENesin ER TAB 600 MG PO SCH (08:51)
[2018-05-06] MEDS: Cetirizine* 10 MG TAB PO SCH (08:51)
--- NOTE | 2018-05-07 10:36 | DS ---
AMENDED REPORT NOW INCLUDES COSIGNER DESIGNATION - ESIGNED BEFORE ADJUSTMENTS CC: Dr. Matos * DISCHARGE SUMMARY: DATE OF ADMISSION: 05/03/18 DATE OF DISCHARGE: 05/06/18 PATIENT OF: Heidi Nuñez MD ATTENDING HOSPITALIST: Dr. Leighann Browne * (DICTATED BY FORD SPAULDING) PRIMARY CARE PHYSICIAN: Dr. Matos. ADMISSION DIAGNOSES: 1. Left-sided chest pain. 2. Cough. 3. Chronic obstructive pulmonary disease. 4. Gastroesophageal reflux disease. 5. Chronic neck and back pain. 6. Anxiety. 7. Chronic allergies. 8. History of left hip fracture. DISCHARGE DIAGNOSES: 1. Left-sided chest pain. 2. Cough. 3. Chronic obstructive pulmonary disease. 4. Gastroesophageal reflux disease. 5. Chronic neck and back pain. 6. Anxiety. 7. Chronic allergies. 8. History of left hip fracture. 9. Community-acquired pneumonia. ADMITTING PHYSICIAN: Heidi Nuñez MD CONSULTATIONS: None. BRIEF MEDICAL HISTORY: Mr. Brown is a 47-year-old gentleman who carries a past medical history significant for COPD, GERD, chronic cough, allergies, anxiety as well as chronic back and neck pain, who presented to the emergency room on complaining of left-sided chest pain. He reports that he has been feeling his usual state of health and got up that morning at 5:00 and felt okay , however couple hours later he developed some left lower rib and chest wall pain and has been coughing for a couple of weeks now. He reports that he has noticed increased sputum production as well as some increased night sweats. He has been coughing every morning usually with some clear secretion; however, it got thicker and more yellowish in color. He reports that he has seen a GI doctor in [place] to monitor some esophageal tumor, but has not seen him in the past 3 years. He denies any hemoptysis or fever. He was evaluated in the emergency room and was found to have slightly elevated white count of 13,900 as well as a chest x-ray that was consistent with alveolar consolidation and community-acquired pneumonia. Given his chest x-ray findings as well as his white count and worsening cough, he was admitted to the medical floor for treatment of pneumonia. HOSPITAL COURSE: The patient was admitted under a hospitalist services for treatment of pneumonia. He had laboratory workup that revealed as mentioned leukocytosis. His lactic acid was slightly elevated at 2.4 due to dehydration. He was also noted to have low sodium that was corrected given IV fluid and his troponin was checked and noticed to be flat with 0 value on 3 consecutive draws. He was given Rocephin and azithromycin as well as nebulizer and O2 supplement, for which he has noticed significant improvement. It is to be mentioned that the patient has been on home oxygen for the past few years due to chronic COPD. He continues to smoke about 1 pack per day. He was also given Solu-Medrol and maintained on p.o. prednisone daily. He continued to improve on a daily basis and repeated blood draw revealed a resolution of his leukocytosis. He also had elevated D-dimer on admission with value of 543, for which a CTA of the chest was done and ruled out any possibility of pulmonary embolism. The patient was ambulatory out of bed and continued to improve on a daily basis. Today on physical exam, he was noted to have moist mucous membrane and no evidence of exudate. His chest with no retraction noted or use of accessory muscle. His lungs were clear to auscultation bilaterally. His heart with regular rate and rhythm without rubs, murmurs or gallops. His vitals were stable with temperature of 97.6 this morning and O2 saturation of 99 % on 2 L via nasal cannula. His blood pressure was 149/96. He was stable for discharge home and he will follow up with Dr. Matos as an outpatient as well. I discussed with him completion of his azithromycin as an outpatient and we will also give him prednisone for the next 5 days. DISCHARGE MEDICATIONS: Include: 1. Albuterol inhaler 2 puffs q.4 hours as needed for shortness of breath. 2. Xanax 0.25 mg p.o. q.h.s. 3. Xanax 0.5 mg p.o. b.i.d. 4. Azithromycin 250 mg q. day x5 days. 5. Pepcid 40 mg p.o. b.i.d. 6. Flovent 1 puff inhaled b.i.d. 7. Mucinex 600 mg p.o. b.i.d. 8. Claritin 10 mg p.o. daily. 9. Morphine sulfate 15 mg p.o. q.h.s. 10. Morphine sulfate 15 mg p.o. b.i.d. 11. Multivitamin 1 tablet daily. 12. Nicotine inhaler 10 mg inhaled q.2 hours as needed for craving. 13. Zofran 4 mg q.6 hours as needed for nausea. 14. Roxicodone 10 mg p.o. q.6 hours. 15. Paxil 20 mg p.o. daily. 16. Prednisone 40 mg p.o. daily x5 days. 17. Pseudoephedrine 30 mg p.o. q.8 hours as needed for congestion. 18. Ultram 50 mg p.o. t.i.d. 19. Ambien 10 mg p.o. q.h.s. as needed for insomnia. FORD SPAULDING [id number]/[facility] #: [id number] ROSEANN
== END 2018-05-06 11:40 | disposition home or self-care (01) | DRG 720 ==
LOC: ED 10:14 → MED 13:04
PROVIDERS: ADMIT Internal Medicine; ATTEND Internal Medicine
DX: A41.9 Sepsis, unspecified organism (principal); J18.8 Other pneumonia, unspecified organism; E87.1 Hypo-osmolality and hyponatremia; R07.89 Other chest pain; R05 Cough; J44.9 Chronic obstructive pulmonary disease, unspecified; K21.9 Gastro-esophageal reflux disease without esophagitis; M54.9 Dorsalgia, unspecified; M54.2 Cervicalgia; F17.210 Nicotine dependence, cigarettes, uncomplicated; F41.9 Anxiety disorder, unspecified; F10.10 Alcohol abuse, uncomplicated; Y90.8 Blood alcohol level of 240 mg/100 ml or more; E86.0 Dehydration; Z99.81 Dependence on supplemental oxygen; Z91.09 Other allergy status, other than to drugs and biological substances; Z79.891 Long term (current) use of opiate analgesic; Z79.899 Other long term (current) drug therapy; Z80.0 Family history of malignant neoplasm of digestive organs
CPT/HCPCS: 36415; 71046; 71275; 80048; 80053; 80320; 83605; 83690; 84145; 84484; 85025; 85379; 87040; 87070; 87205; 87899; 90732; 93005; 94640; 99284; 99406; A9270-GY; G0480; J0456; J0696; J1650; J2060; J2930; J3411; J7512; Q9967